=== PATIENT | female | born 1975 | race Caucasian/White ===

== ENCOUNTER 2017-10-26 16:25 | Emergency (ER) | payer OTHER ==
[2017-10-26 16:36] VITALS: BP 116/57
[2017-10-26 16:37] VITALS: PULSE 106; RESP 20; TEMP 99.6; O2SAT 97
[2017-10-26] MEDS ORDERED: Naproxen 500 MG TAB PO ONE ×2 (16:48→17:03)
--- NOTE | 2017-10-26 17:24 | ED PDOC ---
HPI: CCC, URI, Sore Throat Time Seen by Provider: 10/26/17 16:40 Chief Complaint (Nursing): Flu-like Symptoms Chief Complaint (Provider): Cough, Congestion and Sore Throat History Per: Patient History/Exam Limitations: no limitations Onset/Duration Of Symptoms: Sudden Onset Current Symptoms Are (Timing): Still Present Location Of Pain: None Sick Contacts (Context): None Ear Symptoms: Bilateral: None Additional Complaint(s): 42 year old female presenting with cough, congestion and sore throat. The patient states that she also had a fever tmax of 100 at homes. She reports that she began to take corricidin as instructed by the nurse at her job. Patient also reports that her family members also have similar symptoms. Denies hemoptysis, chest pain, shortness of breath, rash. Of note: Patient returned from [place] on October 19 and states she was there fo r2 weeks. PMD: Non [facility] Provider, Past Medical History Vital Signs: Last Vital Signs Temp 99.6 F 10/26/17 16:35 Pulse 106 H 10/26/17 16:35 Resp 20 10/26/17 16:35 BP 116/57 L 10/26/17 16:35 Pulse Ox 97 10/26/17 17:29 - Family History Family History: States: Unknown Family Hx - Home Medications Home Medications: Ambulatory Orders Medication Instructions Recorded Benzonatate [Tessalon Perle] 100 mg PO Q8 PRN #15 capsule 10/26/17 Fluticasone Propionate [Flonase] 2 spr NS DAILY PRN #1 bottle 10/26/17 Oseltamivir Phosphate [Tamiflu] 75 mg PO BID #9 capsule 10/26/17 - Allergies Allergies/Adverse Reactions: Allergies Allergy/AdvReac Type Severity Reaction Status Date / Time No Known Allergies Allergy Verified 10/01/16 20:05 Review of Systems ENT: Positive for: Nose Congestion, Throat Pain Cardiovascular: Negative for: Chest Pain Respiratory: Positive for: Cough. Negative for: Shortness of Breath, Hemoptysis Skin: Negative for: Rash Physical Exam - Reviewed Nursing Documentation Reviewed: Yes Vital Signs Reviewed: Yes - Physical Exam Appears: Positive for: No Acute Distress Head Exam: Positive for: ATRAUMATIC, NORMAL INSPECTION, NORMOCEPHALIC Skin: Positive for: Normal Color, Warm, Dry. Negative for: Rash Eye Exam: Positive for: Normal appearance, EOMI, PERRL. Negative for: Nystagmus ENT: Positive for: Pharynx Is, TM Is/Are (non erythematous and non bulging), Pharyngeal Erythema. Negative for: Sinus Pain/Drainage, Nasal Congestion, Tonsillar Exudate, Tonsillar Swelling Neck: Positive for: Normal, Painless ROM, Supple Cardiovascular/Chest: Positive for: Regular Rate, Rhythm, Chest Non Tender. Negative for: Tachycardia Respiratory: Positive for: Normal Breath Sounds. Negative for: Rales, Rhonchi, Wheezing, Respiratory Distress Gastrointestinal/Abdominal: Positive for: Normal Exam, Bowel Sounds, Soft. Negative for: Tenderness, Organomegaly, Guarding Neurologic/Psych: Positive for: Alert, Oriented, Gait - ECG O2 Sat by Pulse Oximetry: 97 (RA) Pulse Ox Interpretation: Normal - Progress ED Course And Treament: Rapid strep: negative. Tamiflu PO ordered. Medical Decision Making Medical Decision Makin Initial Impression 42 year old female presenting with cough, congestion and sore throat Initial Plan: * Reevaluation Documented by Amanda Quijano acting as a scribe for Martinez Garcia PA-C. All medical record entries made by the Scribe were at my direction and personally dictated by me. I have reviewed the chart and agree that the record accurately reflects my personal performance of the history, physical exam, medical decision making, and the department course for this patient. I have also personally directed, reviewed, and agree with the discharge instructions and disposition. Disposition - Clinical Impression Clinical Impression: Influenza-like symptoms - Patient ED Disposition Is Patient to be Admitted: No - Disposition Referrals: [facility] [Outside] Disposition: Routine/Home Disposition Time: 17:52 Condition: STABLE Additional Instructions: Drink plenty of fluids. Rest Follow up with your primary care doctor for further evaluation. Prescriptions: Benzonatate [Tessalon Perle] 100 mg PO Q8 PRN #15 capsule PRN Reason: Cough Fluticasone Propionate [Flonase] 2 spr NS DAILY PRN #1 bottle PRN Reason: Allergy Symptoms Oseltamivir Phosphate [Tamiflu] 75 mg PO BID #9 capsule Instructions: Influenza (ED) Forms: [employer] (Vietnamese), [facility] ED School/Work Excuse Print Language: BULGARIAN
== END 2017-10-26 18:10 | disposition home or self-care (01) ==
LOC: H.ER 16:25
DX: J11.1 Influenza due to unidentified influenza virus with other respiratory manifestations (principal)